=== PATIENT | male | born 1980 | race Two or more races ===

== ENCOUNTER 2020-09-05 23:32 | Emergency (ER) | payer SELFPAY ==
[~2020-09-05] VITALS: Ht 172.7 cm; Wt 81.6 kg
--- NOTE | 2020-09-05 23:39 | NUR ---
PT [facility] AND [employer] FOR METH USE, PT WAS RUNNING IN THE [place]. PT ADMITTED TO USING METH. PT AMBULATORY AND FOLLOWING COMMANDS. PLACED IN BED 15 ON MONITOR AND PULSE OX. AWAITING ORDERS
[2020-09-05] MEDS ORDERED: LORAZEPAM INJ 2 MG/ML VIAL ONE (23:52)
[2020-09-05] MEDS: LORAZEPAM INJ 2 MG/ML VIAL IM ONE (23:55)
--- NOTE | 2020-09-05 23:55 | NUR ---
Pt medicated as ordered
[2020-09-06 00:05] LABS: BASOPHILS # (AUTO) 0.1 /CMM (0.0-0.2); BASOPHILS % (AUTO) 0.3 % (0.0-2.0); EOSINOPHILS % (AUTO) 0.3 % (0.0-6.0); HEMATOCRIT 45 % (39-51); LYMPHOCYTES # (AUTO) 0.6 /CMM (0.8-4.8); MEAN CORPUSCULAR HGB CONC 33 g/dl (31.0-36.0); MEAN CORPUSCULAR VOLUME 90 fL (80-96); MONOCYTES # (AUTO) 0.7 /CMM (0.1-1.30); MONOCYTES % (AUTO) 3.8 % (2.0-12.0); NEUTROPHILS # (AUTO) 17.5 /CMM (1.8-8.9); NEUTROPHILS % (AUTO) 92.6 % (43.0-81.0); PLATELET COUNT (AUTO) 307 /CMM (150-450); RED BLOOD CELL COUNT(AUTO) 5.02 MIL/uL (4.5-6.0); WHITE BLOOD COUNT (AUTO) 18.9 K/uL (4.3-11.0)
[2020-09-06 00:16] LABS: CALCIUM, SERUM 9.9 mg/dL (8.5-10.1); CARBON DIOXIDE 19 mmol/L (21-32); CHLORIDE 102 mmol/L (98-107); CREATININE 1.7 mg/dL (0.6-1.3); GLUCOSE 115 mg/dL (74-106); POTASSIUM 3.6 mmol/L (3.5-5.1); SODIUM SERUM 139 mmol/L (136-145); UREA NITROGEN, BLOOD 20 mg/dL (7-18)
[2020-09-06 00:22] LABS: ALANINE AMINOTRANSFERASE 44 U/L (12-78); ALCOHOL, BLOOD < 3 mg/dL (0-0); ALKALINE PHOSPHATASE 87 U/L (46-116); ASPARTATE AMINOTRANSFERASE 88 U/L (15-37); BILIRUBIN,DIRECT 0.2 mg/dL (0.0-0.2); BILIRUBIN,TOTAL 0.6 mg/dL (0.2-1.0); TOTAL PROTEIN, SERUM 7.7 g/dL (6.4-8.2)
[2020-09-06 00:30] LABS: ACETAMINOPHEN < 10 ug/ml (10-30)
[2020-09-06] MEDS: IV NS 0.9% 1,000 ML BAG IV ONE (01:17)
[2020-09-06 03:51] LABS: BILIRUBIN,URINE NEGATIVE (NEGATIVE); COLOR,URINE YELLOW (YELLOW); LEUKOCYTE ESTERASE ,URINE NEGATIVE (NEGATIVE); NITRITE, URINE NEGATIVE (NEGATIVE); PROTEIN,URINE NEGATIVE (NEGATIVE); UGLUCOSE NEGATIVE (NEGATIVE); UROBILINOGEN,URINE 0.2 EU/dL (0.2)
[2020-09-06 03:56] LABS: BACTERIA,URINE None seen /HPF (None Seen); RBC,URINE 0-2 /HPF (0-2); SQUAMOUS EPITHELIAL CELL,UR Few /HPF (None Seen); URINE AMORPHOUS URATE Few /HPF (None Seen)
--- NOTE | 2020-09-06 04:44 | NUR ---
PT RESTING COMFORTABLY.
--- NOTE | 2020-09-06 06:25 | NUR ---
UPON DISCHARGING PT. PT STOOD UP AND STARTED TO COMPLAIN OF L FOOT PAIN. MD AWARE. MD ORDERED XRAY.
--- NOTE | 2020-09-06 06:26 | NUR ---
IV removed. Catheter intact and site benign. Pressure and 4x4 applied to site. No bleeding noted.
--- NOTE | 2020-09-06 06:26 | NUR ---
Trevin couch in ED - 09/06/20 at 0626 by FIORDALIZA Patient discharged to home in stable condition. Written and verbal after care instructions given. Patient verbalizes understanding of instruction. Pt provided with orange juice. Ambulated with steady gait.
--- NOTE | 2020-09-06 07:27 | NUR ---
Patient discharged to home in stable condition. Written and verbal after care instructions given. Patient verbalizes understanding of instruction. Pt ambulated with steady gait. vss.
[2020-09-06 07:28] VITALS: BP 129/82
== END 2020-09-06 07:28 | disposition home or self-care (01) ==
LOC: ER 23:32
DX: S61.401A Unspecified open wound of right hand, initial encounter (principal); F15.10 Other stimulant abuse, uncomplicated; F22 Delusional disorders; M79.672 Pain in left foot; X58.XXXA Exposure to other specified factors, initial encounter; Y93.89 Activity, other specified; Y92.89 Other specified places as the place of occurrence of the external cause; Y99.8 Other external cause status
CPT/HCPCS: 36415; 71045; 73130; 73200; 73630; 80048; 80076; 80299; 80307; 80320; 81001; 85025; 96360; 96372; 99285; J2060; J7030; G0480